=== PATIENT | male | born 1975 | race Caucasian/White ===

== ENCOUNTER 2019-04-16 19:49 | Emergency (ER) | payer SELFPAY ==
[2019-04-16] MEDS ORDERED: Tenecteplase 50 MG Kit IV ONE (19:58)
[2019-04-16] MEDS ORDERED: Sodium Chloride 0.9% 10 ML Syringe FLUSH PRN (19:59)
[2019-04-16] MEDS ORDERED: Tenecteplase 50 MG Kit ONE (20:00)
[2019-04-16] MEDS ORDERED: Heparin Sodium 5,000 Units/ML Vial IVPUSH ONE (20:01)
[2019-04-16] MEDS ORDERED: Aspirin 81 MG Tab.Chew PO ONE (20:02)
--- NOTE | 2019-04-16 20:08 | EDM.PDOC ---
ED HPI GENERAL MEDICAL PROBLEM - General Chief Complaint: Chest Pain Stated Complaint: CHEST PAIN AND ARM AND THROAT PAIN Time Seen by Provider: 04/16/19 19:54 Source of Information: Reports: Patient History Limitations: Reports: No Limitations - History of Present Illness INITIAL COMMENTS - FREE TEXT/NARRATIVE: The patient was working out and he developed burning chest pain. He took some aspirin and came to the ER. He has no shortness of breath, fever, chills or cough. He has no abdominal pain, nausea or vomiting. He does no smoke. He does have a history of hypercholesterolemia for which he takes medicine for. He works out regularly. He does not have hypertension or diabetes. He takes a daily aspirin. Onset: Sudden Duration: Minutes: Location: Reports: Chest Quality: Reports: Burning Severity: Moderate Improves with: Reports: None Worsens with: Reports: None Associated Symptoms: Reports: Chest Pain. Denies: Cough, Fever/Chills, Headaches, Nausea/Vomiting, Shortness of Breath Middle Chest Pain Score (Numeric/FACES): 2 - Related Data Allergies Allergy/AdvReac Type Severity Reaction Status Date / Time No Known Allergies Allergy Verified 04/16/19 19:57 Home Meds: Home Meds Aspirin 81 mg PO BID 04/16/19 [History] atorvaSTATin Calcium [Lipitor] 20 mg PO DAILY 04/16/19 [History] Social & Family History - Tobacco Use Smoking Status *Q: Former Smoker Used Tobacco, but Quit: No - Recreational Drug Use Recreational Drug Use: No ED ROS GENERAL - Review of Systems Review Of Systems: See Below Constitutional: Reports: No Symptoms HEENT: Reports: No Symptoms Respiratory: Reports: No Symptoms Cardiovascular: Reports: Chest Pain Endocrine: Reports: No Symptoms GI/Abdominal: Reports: No Symptoms : Reports: No Symptoms Musculoskeletal: Reports: No Symptoms ED EXAM, GENERAL - Physical Exam Exam: See Below Exam Limited By: No Limitations General Appearance: Alert, No Apparent Distress Ears: Normal External Exam Nose: Normal Inspection Head: Atraumatic, Normocephalic Neck: Normal Inspection Respiratory/Chest: No Respiratory Distress, Lungs Clear, Normal Breath Sounds Cardiovascular: Regular Rate, Rhythm, No Edema, No Murmur GI/Abdominal: Soft, Non-Tender, No Organomegaly, No Mass Back Exam: Normal Inspection Extremities: Normal Inspection EKG INTERPRETATION EKG Date: 04/16/19 Time: 19:54 Rhythm: NSR Rate (Beats/Min): 60 [place]: Normal P-Wave: Present QRS: Normal ST-T: Elevated (INferior leads with reciprocal changes in the anterior leads) QT: Normal Course - Vital Signs Last Recorded V/S: Last Vital Signs Temp 98.3 F 04/16/19 19:53 Pulse 63 04/16/19 19:53 Resp 16 04/16/19 19:53 BP 185/111 H 04/16/19 19:53 Pulse Ox 98 04/16/19 19:53 - Orders/Labs/Meds Orders: Active Orders 24 hr Category Date Time Status Cardiac Monitoring [RC] . DIRECTED Care 04/16/19 19:59 Ordered EKG Documentation Completion [RC] STAT Care 04/16/19 20:00 Ordered Oxygen Therapy [RC] PRN Care 04/16/19 19:59 Ordered Peripheral IV Care [RC] . DIRECTED Care 04/16/19 20:01 Ordered Chest 1V Frontal [CR] Stat Exams 04/16/19 20:01 Ordered CBC W/O DIFF,HEMOGRAM [HEME] MOTH@0700 Lab 04/19/19 07:00 Ordered CBC W/O DIFF,HEMOGRAM [HEME] MOTH@0700 Lab 04/23/19 07:00 Ordered CBC W/O DIFF,HEMOGRAM [HEME] MOTH@0700 Lab 04/26/19 07:00 Ordered CBC W/O DIFF,HEMOGRAM [HEME] MOTH@0700 Lab 04/30/19 07:00 Ordered CBC W/O DIFF,HEMOGRAM [HEME] MOTH@0700 Lab 05/03/19 07:00 Ordered CBC W/O DIFF,HEMOGRAM [HEME] MOTH@0700 Lab 05/07/19 07:00 Ordered CBC WITH AUTO DIFF [HEME] Stat Lab 04/16/19 19:59 Ordered COMPREHENSIVE METABOLIC PN,CMP [CHEM] Stat Lab 04/16/19 19:59 Ordered TROPONIN I [CHEM] Stat Lab 04/16/19 19:59 Ordered Aspirin Med 04/16/19 20:02 Once 324 mg PO ONETIME ONE Heparin Sodium Med 04/16/19 20:01 Once 5,000 units IVPUSH ONETIME ONE Heparin Sodium/D5W [Heparin 25,000 Units in D5W 500 ML] Med 04/16/19 20:15 Ordered 25,000 units in 500 ml IV TITRATE Sodium Chloride 0.9% [Saline Flush] Med 04/16/19 19:59 Ordered 10 ml FLUSH ASDIRECTED PRN Peripheral IV Insertion Adult [OM.PC] Stat Oth 04/16/19 19:59 Ordered Meds: Medications Discontinued Medications Generic Name Dose Route Start Last Admin Trade Name Freq PRN Reason Stop Dose Admin Tenecteplase 50 mg 04/16/19 19:58 Tnkase IV 04/16/19 19:59 ONETIME ONE Protocol Tenecteplase Confirm 04/16/19 20:00 Tnkase Administered 04/16/19 20:01 Dose 50 mg .ROUTE .STK-MED ONE - Re-Assessments/Exams Free Text/Narrative Re-Assessment/Exam: 04/16/19 20:08 I went into the room right away and the EKG was done quickly and it showed ST elevation in the inferior leads. I ordered oxygen PRN, IV saline lock, TNKase, heparin bolus, heparin drip more aspirin, CXR and labs. I called [facility] and talked to Dr Jhaveri and he accepted the patient. Departure - Departure Time of Disposition: 20:15 Disposition: DC/Tfer to Acute Hospital 02 Reason for Transfer *Q: Primary PCI Indicated Condition: Serious Clinical Impression: ST elevation (STEMI) myocardial infarction Qualifiers: Involved coronary artery: right coronary artery Qualified Code(s): I21.11 - ST elevation (STEMI) myocardial infarction involving right coronary artery Referrals: Tone Gibson MD [Primary Care Provider] - - My Orders Last 24 Hours: My Active Orders 04/16/19 19:59 Cardiac Monitoring [RC] . DIRECTED Oxygen Therapy [RC] PRN CBC WITH AUTO DIFF [HEME] Stat COMPREHENSIVE METABOLIC PN,CMP [CHEM] Stat TROPONIN I [CHEM] Stat Sodium Chloride 0.9% [Saline Flush] 10 ml FLUSH ASDIRECTED PRN Peripheral IV Insertion Adult [OM.PC] Stat 04/16/19 20:00 EKG Documentation Completion [RC] STAT 04/16/19 20:01 Peripheral IV Care [RC] . DIRECTED Chest 1V Frontal [CR] Stat Heparin Sodium 5,000 units IVPUSH ONETIME ONE 04/16/19 20:02 Aspirin 324 mg PO ONETIME ONE 04/16/19 20:15 Heparin Sodium/D5W [Heparin 25,000 Units in D5W 500 ML] 25,000 units in 500 ml IV TITRATE 04/19/19 07:00 CBC W/O DIFF,HEMOGRAM [HEME] MOTH@69904/23/19 07:00 CBC W/O DIFF,HEMOGRAM [HEME] MOTH@69904/26/19 07:00 CBC W/O DIFF,HEMOGRAM [HEME] MOTH@69904/30/19 07:00 CBC W/O DIFF,HEMOGRAM [HEME] MOTH@69905/03/19 07:00 CBC W/O DIFF,HEMOGRAM [HEME] MOTH@69905/07/19 07:00 CBC W/O DIFF,HEMOGRAM [HEME] MOTH@07 - Assessment/Plan Last 24 Hours: My Active Orders 04/16/19 19:59 Cardiac Monitoring [RC] . DIRECTED Oxygen Therapy [RC] PRN CBC WITH AUTO DIFF [HEME] Stat COMPREHENSIVE METABOLIC PN,CMP [CHEM] Stat TROPONIN I [CHEM] Stat Sodium Chloride 0.9% [Saline Flush] 10 ml FLUSH ASDIRECTED PRN Peripheral IV Insertion Adult [OM.PC] Stat 04/16/19 20:00 EKG Documentation Completion [RC] STAT 04/16/19 20:01 Peripheral IV Care [RC] . DIRECTED Chest 1V Frontal [CR] Stat Heparin Sodium 5,000 units IVPUSH ONETIME ONE 04/16/19 20:02 Aspirin 324 mg PO ONETIME ONE 04/16/19 20:15 Heparin Sodium/D5W [Heparin 25,000 Units in D5W 500 ML] 25,000 units in 500 ml IV TITRATE 04/19/19 07:00 CBC W/O DIFF,HEMOGRAM [HEME] MOTH@69904/23/19 07:00 CBC W/O DIFF,HEMOGRAM [HEME] MOTH@69904/26/19 07:00 CBC W/O DIFF,HEMOGRAM [HEME] MOTH@69904/30/19 07:00 CBC W/O DIFF,HEMOGRAM [HEME] MOTH@69905/03/19 07:00 CBC W/O DIFF,HEMOGRAM [HEME] MOTH@0705/07/19 07:00 CBC W/O DIFF,HEMOGRAM [HEME] MOTH@07
[2019-04-16] MEDS ORDERED: Heparin Sodium/D5W 25,000 UNITS/500 ML BAG IV SCH (20:15)
--- NOTE | 2019-04-17 07:19 | CR ---
Chest: Portable view of the chest was obtained. Comparison: No prior chest x-ray. Heart size and mediastinum are normal. Lungs are clear. Bony structures are grossly intact. Impression: 1. Nothing acute is seen on portable chest x-ray. Diagnostic: #1
== END 2019-04-16 20:33 ==
LOC: JD.ED 19:49
DX: I21.11 ST elevation (STEMI) myocardial infarction involving right coronary artery (principal); Z87.891 Personal history of nicotine dependence; Z79.82 Long term (current) use of aspirin; Z79.899 Other long term (current) drug therapy
CPT/HCPCS: 36415; 71045; 80053; 84484; 85025; 93005; 96365; 96375; 96376; 99285; A9270; J1644; J3101; 93010; 99284